=== PATIENT | female | born 1970 | race Caucasian/White ===

== ENCOUNTER 2018-10-08 20:10 | Emergency (ER) | payer OTHER ==
[~2018-10-08] VITALS: Ht 165.1 cm; Wt 56.2 kg
[~2018-10-08 20:10] MED LIST: ACETAMINOPHEN650 M5 PO; AMOXICILLIN500 M1 PO; AMOXICILLIN875 MG PO; CALCITRIOL0.25 MCG PO; CALCITRIOL0.5 MCG; CALCITROL; CARVEDILOL3.125 MG PO; CELEXA 20 MG TA20 M1; CLEOCIN HCL300 MG PO; FLUZONE 2045 MCG/011; IBUPROFEN 800800 M1 PO; K-DUR 20 MEQ T20 MEQ PO; KEFLEX500 MG PO; LASIX 40 MG TAB40 MG PO; LEVAQUIN 500 M500 MG PO; LEVOTHYROXINE0.05 MG; LISINOPRIL2.5 MG PO; MAG-OX 400 TAB400 M1 PO; NORCO 5-325 TA1 EACH PO; PENICILLIN VK500 M1 PO; PERCOCET 5-3251 EACH PO; PNEUMOVAX25 MCG/0.5; POTASSIUM20 OR; PREDNISONE 10 M10 MG PO; PRENATAL PO; PRINZIDE 10-121 EACH PO; RENVELA800 MG PO; SLOW-MAG64 MG PO; SPIRONOLACTONE25 M1 GT; SYNTHROID150 MCG PO; TL-FOL 500 CAP1 EACH PO; TRAMADOL 50 MG50 MG PO; TRICOR145 MG PO; VENTOLIN HFA 1818 GM INH; ZOLOFT25 MG PO
[2018-10-08] MEDS ORDERED: AMOXICILLIN875 MG PO (21:05)
[2018-10-08] MEDS ORDERED: PHENERGAN 25 MG25 M1 PO (21:05)
[2018-10-08 21:14] VITALS: BP 136/95
== END 2018-10-08 21:15 | disposition home or self-care (01) ==
LOC: M.ERS 20:10
DX: J06.9 Acute upper respiratory infection, unspecified (principal); F17.210 Nicotine dependence, cigarettes, uncomplicated; I42.9 Cardiomyopathy, unspecified; Z90.89 Acquired absence of other organs

== ENCOUNTER 2019-01-27 18:55 | Emergency (ER) | payer OTHER ==
[~2019-01-27] VITALS: Ht 162.6 cm; Wt 56.2 kg
[~2019-01-27 18:55] MED LIST changes: +PHENERGAN 25 MG25 M1 PO
[2019-01-27] MEDS ORDERED: VALTREX1000 MG PO (20:13)
[2019-01-27] MEDS ORDERED: HYDROCODON-ACE1 EAC8 PO (20:13)
[2019-01-27] MEDS ORDERED: PROAIR HFA8.5 GM INH (20:30)
[2019-01-27] MEDS ORDERED: ZOVIRAX200 MG PO (20:40)
[2019-01-27] MEDS ORDERED: ONDANSETRON HCL4 M2 PO (20:40)
[2019-01-27 20:50] VITALS: BP 107/80
== END 2019-01-27 20:52 | disposition home or self-care (01) ==
LOC: M.ERS 18:55
DX: B02.9 Zoster without complications (principal); F17.210 Nicotine dependence, cigarettes, uncomplicated; Z90.89 Acquired absence of other organs; Z98.890 Other specified postprocedural states